=== PATIENT | female | born 1945 | race Caucasian/White ===

== ENCOUNTER 2018-01-05 13:12 | Emergency (ER) | payer MEDICARE, BC ==
[2014-11-17 12:41] VITALS: BMI 20.7
[~2018-01-05 13:12] MED LIST: BAYER CHEWABLE81 MG PO; CENTRUM COMPLE1 EACH PO; FISH OIL 1,0001 CA1 PO; LISINOPRIL10 MG PO
[2018-01-05 15:30] LABS: HEMATOCRIT 40.1 % (36.0-48.0); HEMOGLOBIN 13.9 g/dL (12-16); LYMPHOCYTES 40.4 % (15-50); MCH 29.9 pg (26.0-34.0); MCHC 34.7 g/dL (31.0-37.0); MCV 86.2 fL (80.0-100.0); MEAN PLATELET VOLUME 9.9 fL (7.4-10.4); NEUTROPHILS 53.6 % (40-80); PLATELET COUNT 239 10x3/uL (130-400); RBC 4.65 10x6/uL (4.00-5.40); RDW 12.7 % (11.5-14.5); WBC 6.4 10x3/uL (4.8-10.8)
[2018-01-05 15:56] LABS: ALKALINE PHOSPHATASE 63 U/L (46-116); ALT (SGPT) 24 U/L (10-68); BILIRUBIN - TOTAL 0.47 mg/dL (0.2-1.3); CALC OSMOLALITY 280 mosm/kg (275-300); CALCIUM 9.8 mg/dL (8.5-10.1); CARBON DIOXIDE 28.7 mmol/L (21.0-32.0); CHLORIDE - SERUM 102 mmol/L (98-107); GLUCOSE 91 mg/dL (74-106); POTASSIUM - SERUM 4.1 mmol/L (3.5-5.1); PROTEIN - SERUM 7.1 g/dL (6.4-8.2); SODIUM 140 mmol/L (136-145); UREA NITROGEN 17 mg/dL (7-18); eGFR NON AFRICAN AMERICAN 58 mL/min (90-120)
[2018-01-05 16:06] LABS: CREATINE KINASE 126 UL (21-215); PRO BNP 235 pg/mL (0-125)
[2018-01-05 16:10] LABS: TROPONIN-I < 0.017 ng/mL (0.000-0.060)
== END 2018-01-05 19:49 | disposition home or self-care (01) ==
LOC: D.ER 13:12
PROVIDERS: Family Medicine
DX: R00.2 Palpitations (principal); I10 Essential (primary) hypertension; F41.9 Anxiety disorder, unspecified; F17.200 Nicotine dependence, unspecified, uncomplicated; R00.1 Bradycardia, unspecified; I45.10 Unspecified right bundle-branch block

== ENCOUNTER 2018-01-08 14:29 | Emergency (ER) | payer MEDICARE, BC ==
[2014-11-17 12:41] VITALS: BMI 20.7
== END 2018-01-08 18:44 | disposition home or self-care (01) ==
LOC: D.ER 14:29
DX: R55 Syncope and collapse (principal); I10 Essential (primary) hypertension

== ENCOUNTER → 2018-01-26 16:43 | Outpatient (CLI) | payer MEDICARE, BC ==
[2014-11-17 12:41] VITALS: BMI 20.7
[2018-01-26 17:25] LABS: ANION GAP 15.3 mmol/L (8-16); CALCIUM 8.3 mg/dL (8.5-10.1); CARBON DIOXIDE 24.9 mmol/L (21.0-32.0); CREATININE - SERUM 0.9 mg/dL (0.6-1.3); POTASSIUM - SERUM 4.2 mmol/L (3.5-5.1)
== END | disposition home or self-care (01) ==
LOC: D.LABREF 16:43
PROVIDERS: Internal Medicine Interventional Cardiology
DX: I10 Essential (primary) hypertension (principal)

== ENCOUNTER → 2020-02-01 12:53 | Outpatient (CLI) | payer OTHER, MEDICARE, BC ==
[2014-11-17 12:41] VITALS: BMI 20.7
== END | disposition home or self-care (01) ==
LOC: D.HCCECHO 12:53
PROVIDERS: ATTEND Internal Medicine Interventional Cardiology
DX: I10 Essential (primary) hypertension (principal)

== ENCOUNTER 2021-05-09 11:47 | Day surgery (SDC) | payer MEDICARE, BC ==
[~2021-05-09] VITALS: Ht 167.6 cm; Wt 57.3 kg
[2021-05-09 12:06] LABS: BASOPHILS 0.5 % (0-2); EOSINOPHILS 0.6 % (0-7); HEMATOCRIT 40.5 % (36.0-48.0); HEMOGLOBIN 13.3 g/dL (12-16); LYMPHOCYTES 24.9 % (15-50); MCH 29.2 pg (26.0-34.0); MCHC 32.9 g/dL (31.0-37.0); MCV 88.6 fL (80.0-100.0); MEAN PLATELET VOLUME 7.9 fL (7.4-10.4); MONOCYTES 7.7 % (2-11); NEUTROPHILS 66.3 % (40-80); RBC 4.58 10x6/uL (4.00-5.40); RDW 13.4 % (11.5-14.5); WBC 8.4 10x3/uL (4.8-10.8)
[2021-05-09 12:27] LABS: ANION GAP 12.3 mmol/L (8-16); CARBON DIOXIDE 27.3 mmol/L (21.0-32.0); CREATININE - SERUM 1.2 mg/dL (0.6-1.3); POTASSIUM - SERUM 4.6 mmol/L (3.5-5.1)
[2021-05-09 12:30] LABS: PLATELET COUNT 292 10x3/uL (130-400)
[2021-05-09] MEDS ORDERED: CALCIUM 600 +1 EAC3 PO (12:57)
[2021-05-09 13:12] VITALS: Ht 167.6 cm; Wt 57.3 kg
== END 2021-05-09 16:35 | disposition home or self-care (01) ==
LOC: D.OPS 11:47
PROVIDERS: Anesthesiology; ATTEND Surgery
DX: I10 Essential (primary) hypertension (principal); K20.90 Esophagitis, unspecified without bleeding; K44.9 Diaphragmatic hernia without obstruction or gangrene; K21.00 Gastro-esophageal reflux disease with esophagitis, without bleeding